=== PATIENT | male | born 1990 | race Two or more races ===

== ENCOUNTER 2018-03-01 12:58 | Emergency (ER) | payer OTHER ==
[2018-03-01 13:16] VITALS: BP 128/70
--- NOTE | 2018-03-01 13:55 | EDPHY ---
H & P Stated Complaint: Pt seen for puffy red eyes x 1 week prior, prescribed Polymyxin, worsening Time Seen by Provider: 03/01/18 13:36 HPI/ROS: Chief Complaint: Eye pain HPI: 28-year-old male developed bilateral eye irritation early last week. He was seen at [facility] and started on polymyxin with bacitracin. Patient has had worsening irritation in both of his eyes since then. He has had increasing tearing. No matting. He has been rubbing his eyes. Has had some blurry vision. Symptoms are the same in both eyes. ROS: 10 point Review of Systems is negative except as noted in the HPI. PMH: Denies Social History: No smoking, no alcohol, no recreational drug use Family History: non-contributory Physical Exam: Gen: Awake, Alert, No Distress HEENT: Nose: no rhinorrhea Eyes: PERRLA, EOMI, bilateral injection. No exudate, Visual acuity is 20/ 25 left eye, 20/20 right eye. Mouth: Moist mucosa Skin: no rash Neuro: CN II-XII intact, Sensation grossly intact, Strength 5/5 in bilateral upper and lower extremities - Personal History Current Tetanus/Diphtheria Vaccine: Yes - Medical/Surgical History Hx Asthma: No Hx Chronic Respiratory Disease: No Hx Diabetes: No Hx Cardiac Disease: No Hx Renal Disease: No Hx Cirrhosis: No Hx Alcoholism: No Hx HIV/AIDS: No Hx Splenectomy or Spleen Trauma: No - Social History Smoking Status: Never smoked Constitutional: Initial Vital Signs Temperature (C) 36.6 C 03/01/18 13:12 Heart Rate 76 03/01/18 13:12 Respiratory Rate 16 03/01/18 13:12 Blood Pressure 128/70 H 03/01/18 13:12 O2 Sat (%) 94 03/01/18 13:12 O2 Delivery Mode Room Air Allergies/Adverse Reactions: No Known Allergies Allergy (Verified 03/01/18 13:16) Home Medications: Medication Instructions Recorded Polymyxin B Sulfate 03/01/18 Medical Decision Making ED Course/Re-evaluation: 28-year-old male presenting with likely a chemical conjunctivitis secondary to the polymyxin these taking. His visual acuity is appropriate. Is not have any discharge. Plan will be to discontinue the antibiotic drops. Will start him on oral antihistamines and artificial tears. He will follow up with Ophthalmology tomorrow. Departure - Departure Disposition: Home, Routine, Self-Care Clinical Impression: Conjunctivitis Condition: Good Instructions: Conjunctivitis (ED) Additional Instructions: Follow up with Ophthalmology tomorrow. Discontinue the polymyxin antibiotics. You may use artificial tears for symptom relief. You may take Benadryl, 50 mg every 6 hr for itching. Return to the emergency department for increasing pain, discharge, vision changes, headache, or any other concerns. Referrals: Mayco Payne MD [Medical Doctor] - As per Instructions
[2018-03-01] MEDS ORDERED: diphenhydrAMINE 25 MG CAP PO ONE (14:28)
== END 2018-03-01 14:44 | disposition home or self-care (01) ==
DX: H10.9 Unspecified conjunctivitis (principal)